=== PATIENT | female | born 2000 | race African-American/Black ===

== ENCOUNTER 2022-12-29 21:01 | Emergency (ER) | payer SELFPAY ==
[~2022-12-29] VITALS: Ht 162.6 cm; Wt 72.0 kg
[2022-12-29 21:58] VITALS: BP 141/92
[2022-12-29 23:59] LABS: CLARITY URINE CLOUDY (CLEAR); COLOR URINE YELLOW (YELLOW); KETONES URINE TRACE (NEGATIVE); LEUKOCYTE ESTERASE URINE 1+ (NEGATIVE); NITRITE URINE NEGATIVE (NEGATIVE); OCCULT BLOOD URINE NEGATIVE (NEGATIVE); PROTEIN URINE NEGATIVE (NEGATIVE); SPECIFIC GRAVITY URINE 1.023 (1.005-1.030)
[2022-12-30] MEDS ORDERED: DOXY100T2 PO (00:10)
[2022-12-30] MEDS ORDERED: VALA10002 PO (00:10)
[2022-12-30] MEDS ORDERED: LIDOCAINE HCL 1% 20ML VIAL (Pyxis) INJ INFIL ONE (00:15)
[2022-12-30] MEDS ORDERED: CEFTRIAXONE SODIUM 500 MG/VIAL IM ONE (00:15)
[2022-12-30] MEDS ORDERED: DOXYCYCLINE HYCLATE 100MG CAPSULE PO ONE (00:15)
[2022-12-30] MEDS ORDERED: CEPH500C2 PO (00:37)
[2023-01-02 04:07] LABS: NEISSERIA GONORRHOEAE NAA Negative (Negative)
== END 2022-12-30 01:22 | disposition home or self-care (01) ==
LOC: ER 21:01
DX: A64 Unspecified sexually transmitted disease (principal); N39.0 Urinary tract infection, site not specified
CPT/HCPCS: 81003; 81025; 87491; 87591; 99283; J0696

== ENCOUNTER 2023-10-24 16:52 | Emergency (ER) | payer SELFPAY ==
[~2023-10-24] VITALS: Ht 162.6 cm; Wt 74.0 kg
[~2023-10-24 16:52] MED LIST: CEPH500C2 PO; DOXY100T2 PO; VALA10002 PO
[2023-10-24 17:02] VITALS: BP 122/65; PULSE 96; RESP 18; TEMP 98.4; O2SAT 100
== END 2023-10-24 22:20 | disposition left against medical advice (07) ==
LOC: ER 16:52
DX: N93.9 Abnormal uterine and vaginal bleeding, unspecified (principal); Z53.21 Procedure and treatment not carried out due to patient leaving prior to being seen by health care provider
CPT/HCPCS: 99281

== ENCOUNTER 2024-03-03 22:05 | Emergency (ER) | payer MEDICAID ==
[~2024-03-03] VITALS: Ht 162.6 cm; Wt 70.0 kg
[2024-03-03 22:25] VITALS: TEMP 98.6; O2SAT 100
[2024-03-04 01:48] LABS: BASOPHILS % 0.9 % (0.0-2.0); EOSINOPHILS % 0.4 % (0.0-5.0); HEMATOCRIT. 37.5 % (36.0-48.0); HEMOGLOBIN. 12.4 g/dL (12.0-16.0); LYMPHOCYTES % 30.2 % (20.0-50.0); MEAN CORPUSCULAR HGB CONC 33.1 g/dL (31.0-37.0); MEAN CORPUSCULAR VOLUME 81.4 fL (81.0-99.0); MEAN PLATELET VOLUME 7.8 fl (7.4-10.4); MONOCYTES % 6.3 % (2.0-8.0); NEUTROPHILS % 62.2 % (40.0-76.0); PLATELET 290 x1000/uL (130-400); RED BLOOD CELL COUNT 4.61 mill/uL (4.2-5.4); RED CELL DISTRIBUTION WIDTH 13.2 % (11.6-14.6); WHITE BLOOD COUNT 7.8 x1000/uL (4.5-11.0)
[2024-03-04 02:04] LABS: CHLORIDE 105 mEq/L (98-107); SODIUM 137 mEq/L (136-145)
[2024-03-04 02:05] LABS: CARBON DIOXIDE 25 mEq/L (21-32)
[2024-03-04 02:10] LABS: CREATININE 0.9 mg/dL (0.6-1.0); GLUCOSE 87 mg/dL (70-105); UREA NITROGEN BLOOD 6 mg/dL (9-23)
[2024-03-04 02:12] LABS: ALANINE AMINOTRANSFERASE 8 IU/L (10-49); ALBUMIN 4.9 g/dL (3.2-4.8); ASPARTATE AMINOTRANSFERASE 16 IU/L (<34)
[2024-03-04 02:13] LABS: BILIRUBIN TOTAL 0.3 mg/dL (0.1-1.0); PROTEIN TOTAL 8.3 g/dL (6.0-8.3)
[2024-03-04] MEDS: ONDANSETRON 4MG ODT PO ONE (02:16)
[2024-03-04 02:18] LABS: CLARITY URINE CLOUDY (CLEAR); COLOR URINE DARK YELLOW (YELLOW); GLUCOSE URINE NEGATIVE (NEGATIVE); KETONES URINE TRACE (NEGATIVE); LEUKOCYTE ESTERASE URINE 2+ (NEGATIVE); NITRITE URINE NEGATIVE (NEGATIVE); OCCULT BLOOD URINE NEGATIVE (NEGATIVE); PH URINE 5.5 (4.5-8.0); PROTEIN URINE NEGATIVE (NEGATIVE); SPECIFIC GRAVITY URINE 1.025 (1.005-1.030)
[2024-03-04 02:36] LABS: RBC URINE 0-2 /hpf (0-2)
[2024-03-04 02:37] LABS: BACTERIA URINE 1+; CALCIUM OXALATE CRYSTALS URINE 3+ /lpf; MUCUS URINE 1+ /lpf (< = 2+); SQUAMOUS EPITHELIAL CELL URINE 2+ /lpf (RARE/1+)
[2024-03-04 04:45] LABS: BASOPHILS % 0.6 % (0.0-2.0); EOSINOPHILS % 0.6 % (0.0-5.0); HEMATOCRIT. 34.9 % (36.0-48.0); HEMOGLOBIN. 11.5 g/dL (12.0-16.0); LYMPHOCYTES % 33.2 % (20.0-50.0); MEAN CORPUSCULAR HEMOGLOBIN 26.6 pg (28.0-32.0); MEAN CORPUSCULAR VOLUME 80.8 fL (81.0-99.0); MEAN PLATELET VOLUME 7.7 fl (7.4-10.4); MONOCYTES % 5.9 % (2.0-8.0); NEUTROPHILS % 59.7 % (40.0-76.0); PLATELET 261 x1000/uL (130-400); RED BLOOD CELL COUNT 4.32 mill/uL (4.2-5.4); RED CELL DISTRIBUTION WIDTH 13.6 % (11.6-14.6); WHITE BLOOD COUNT 7.9 x1000/uL (4.5-11.0)
[2024-03-04] MEDS ORDERED: NITR-87 MT (04:45)
[2024-03-04] MEDS ORDERED: TOPUD MT (04:45)
[2024-03-04] MEDS ORDERED: ONDA4TAB50 MT (04:45)
[2024-03-04 04:53] LABS: CHLORIDE 106 mEq/L (98-107); POTASSIUM 3.8 mEq/L (3.5-5.1); SODIUM 138 mEq/L (136-145)
[2024-03-04 04:54] LABS: CALCIUM 9.4 mg/dL (8.7-10.4); CARBON DIOXIDE 25 mEq/L (21-32)
[2024-03-04 04:59] LABS: CREATININE 0.8 mg/dL (0.6-1.0); GLUCOSE 84 mg/dL (70-105)
[2024-03-04 05:11] LABS: B-HCG QUANTITATIVE 22917 mIU/mL (<3)
[2024-03-04 05:16] LABS: UREA NITROGEN BLOOD < 5 mg/dL (9-23)
[2024-03-04 05:23] VITALS: BP 106/61; PULSE 94; RESP 16
== END 2024-03-04 05:23 | disposition home or self-care (01) ==
LOC: ER 22:05
DX: O20.0 Threatened abortion (principal); O23.31 Infections of other parts of urinary tract in pregnancy, first trimester; N39.0 Urinary tract infection, site not specified; Z3A.01 Less than 8 weeks gestation of pregnancy
CPT/HCPCS: 99285; 81003; 36415 ×2; 76830; 76856; 80053; 81025; 84702; 85025; 86850; 86900; 86901; 80048; Q0162

== ENCOUNTER 2024-03-12 01:50 | Emergency (ER) | payer MEDICAID ==
[~2024-03-12] VITALS: Ht 162.6 cm; Wt 73.0 kg
[~2024-03-12 01:50] MED LIST changes: +NITR-87 MT; +ONDA4TAB50 MT; +TOPUD MT
[2024-03-12 02:11] VITALS: TEMP 99.3; O2SAT 99
[2024-03-12] MEDS ORDERED: METOCLOPRAMIDE 10MG/10 ML UDC PO ONE (02:45)
[2024-03-12 03:14] LABS: BASOPHILS % 0.7 % (0.0-2.0); EOSINOPHILS % 0.2 % (0.0-5.0); HEMOGLOBIN. 11.4 g/dL (12.0-16.0); LYMPHOCYTES % 15.4 % (20.0-50.0); MEAN CORPUSCULAR HEMOGLOBIN 25.9 pg (28.0-32.0); MEAN CORPUSCULAR HGB CONC 31.8 g/dL (31.0-37.0); MEAN CORPUSCULAR VOLUME 81.2 fL (81.0-99.0); MEAN PLATELET VOLUME 8.2 fl (7.4-10.4); MONOCYTES % 7.8 % (2.0-8.0); NEUTROPHILS % 75.9 % (40.0-76.0); PLATELET 236 x1000/uL (130-400); RED BLOOD CELL COUNT 4.43 mill/uL (4.2-5.4); RED CELL DISTRIBUTION WIDTH 13.4 % (11.6-14.6); WHITE BLOOD COUNT 7.9 x1000/uL (4.5-11.0)
[2024-03-12 03:21] LABS: CHLORIDE 101 mEq/L (98-107); POTASSIUM 3.5 mEq/L (3.5-5.1); SODIUM 134 mEq/L (136-145)
[2024-03-12 03:22] LABS: CARBON DIOXIDE 24 mEq/L (21-32)
[2024-03-12 03:23] LABS: CALCIUM 9.5 mg/dL (8.7-10.4)
[2024-03-12 03:27] LABS: CREATININE 0.8 mg/dL (0.6-1.0)
[2024-03-12 03:28] LABS: GLUCOSE 94 mg/dL (70-105)
[2024-03-12 03:29] LABS: ALANINE AMINOTRANSFERASE 8 IU/L (10-49); ASPARTATE AMINOTRANSFERASE 13 IU/L (<34)
[2024-03-12 03:30] LABS: BILIRUBIN TOTAL 0.2 mg/dL (0.1-1.0); PROTEIN TOTAL 7.2 g/dL (6.0-8.3)
[2024-03-12] MEDS: METOCLOPRAMIDE 10MG/10 ML UDC PO NR (03:30)
[2024-03-12 03:40] LABS: B-HCG QUANTITATIVE 93992 mIU/mL (<3)
[2024-03-12 04:00] LABS: UREA NITROGEN BLOOD < 5 mg/dL (9-23)
[2024-03-12] MEDS: SODIUM CHLORIDE 0.9% 1,000 ML IV ONE (05:30)
[2024-03-12] MEDS ORDERED: ONDA4TAB50 MT (05:37)
[2024-03-12 08:12] VITALS: BP 99/59; PULSE 110; RESP 15
== END 2024-03-12 08:34 | disposition home or self-care (01) ==
LOC: ER 02:16
DX: O21.0 Mild hyperemesis gravidarum (principal); Z3A.01 Less than 8 weeks gestation of pregnancy
CPT/HCPCS: 99284; 96360; 76801; 80053; 84702; 85025; 36415; 76817; J8597; J7030

== ENCOUNTER 2024-06-06 01:47 | Emergency (ER) | payer BC, MEDICAID ==
[~2024-06-06] VITALS: Ht 162.6 cm; Wt 70.0 kg
[2024-06-06 01:59] VITALS: BP 125/85; PULSE 67; RESP 16; TEMP 98.1; O2SAT 100
[2024-06-06 02:24] LABS: BASOPHILS % 0.8 % (0.0-2.0); EOSINOPHILS % 1.3 % (0.0-5.0); HEMATOCRIT. 35.4 % (36.0-48.0); HEMOGLOBIN. 11.6 g/dL (12.0-16.0); LYMPHOCYTES % 50.4 % (20.0-50.0); MEAN CORPUSCULAR HEMOGLOBIN 26.8 pg (28.0-32.0); MEAN CORPUSCULAR HGB CONC 32.7 g/dL (31.0-37.0); MEAN CORPUSCULAR VOLUME 81.9 fL (81.0-99.0); MEAN PLATELET VOLUME 8.1 fl (7.4-10.4); MONOCYTES % 6.2 % (2.0-8.0); NEUTROPHILS % 41.3 % (40.0-76.0); PLATELET 248 x1000/uL (130-400); RED BLOOD CELL COUNT 4.32 mill/uL (4.2-5.4); RED CELL DISTRIBUTION WIDTH 13.9 % (11.6-14.6); WHITE BLOOD COUNT 6.9 x1000/uL (4.5-11.0)
[2024-06-06 02:38] LABS: CHLORIDE 105 mEq/L (98-107); POTASSIUM 4.1 mEq/L (3.5-5.1); SODIUM 141 mEq/L (136-145)
[2024-06-06 02:39] LABS: CARBON DIOXIDE 28 mEq/L (21-32)
[2024-06-06 02:40] LABS: CALCIUM 9.8 mg/dL (8.7-10.4)
[2024-06-06 02:44] LABS: GLUCOSE 90 mg/dL (70-105); UREA NITROGEN BLOOD 8 mg/dL (9-23)
[2024-06-06 02:45] LABS: B-HCG QUANTITATIVE 14 mIU/mL (<3)
== END 2024-06-06 04:52 | disposition left against medical advice (07) ==
LOC: ER 01:47
DX: Z36.89 Encounter for other specified antenatal screening (principal); Z53.21 Procedure and treatment not carried out due to patient leaving prior to being seen by health care provider
CPT/HCPCS: 36415; 76801; 80048; 81025; 84702; 85025; 86850; 86900

== ENCOUNTER 2024-07-29 16:08 | Emergency (ER) | payer BC ==
[~2024-07-29] VITALS: Ht 157.5 cm; Wt 69.0 kg
[2024-07-29 16:47] VITALS: TEMP 97.9; O2SAT 100
[2024-07-29] MEDS: ACETAMINOPHEN 325MG TABLET PO PRN (17:58)
[2024-07-29] MEDS: ONDANSETRON 4MG ODT PO ONE (17:58)
[2024-07-29 18:02] LABS: CLARITY URINE TURBID (CLEAR); COLOR URINE YELLOW (YELLOW); GLUCOSE URINE NEGATIVE (NEGATIVE); KETONES URINE NEGATIVE (NEGATIVE); LEUKOCYTE ESTERASE URINE NEGATIVE (NEGATIVE); NITRITE URINE NEGATIVE (NEGATIVE); OCCULT BLOOD URINE NEGATIVE (NEGATIVE); PROTEIN URINE NEGATIVE (NEGATIVE); SPECIFIC GRAVITY URINE 1.021 (1.005-1.030)
[2024-07-29 18:08] LABS: BASOPHILS % 0.7 % (0.0-2.0); EOSINOPHILS % 0.3 % (0.0-5.0); HEMATOCRIT. 38.4 % (36.0-48.0); HEMOGLOBIN. 12.5 g/dL (12.0-16.0); LYMPHOCYTES % 36.9 % (20.0-50.0); MEAN CORPUSCULAR HEMOGLOBIN 26.8 pg (28.0-32.0); MEAN CORPUSCULAR HGB CONC 32.7 g/dL (31.0-37.0); MEAN CORPUSCULAR VOLUME 82.2 fL (81.0-99.0); MONOCYTES % 6.1 % (2.0-8.0); PLATELET 254 x1000/uL (130-400); RED BLOOD CELL COUNT 4.67 mill/uL (4.2-5.4); RED CELL DISTRIBUTION WIDTH 13.7 % (11.6-14.6); WHITE BLOOD COUNT 6.7 x1000/uL (4.5-11.0)
[2024-07-29 18:13] LABS: CHLORIDE 105 mEq/L (98-107); SODIUM 136 mEq/L (136-145)
[2024-07-29 18:14] LABS: CALCIUM 9.7 mg/dL (8.7-10.4); CARBON DIOXIDE 25 mEq/L (21-32)
[2024-07-29 18:19] LABS: CREATININE 0.8 mg/dL (0.6-1.0); GLUCOSE 79 mg/dL (70-105); UREA NITROGEN BLOOD 5 mg/dL (9-23)
[2024-07-29 18:21] LABS: ALANINE AMINOTRANSFERASE 26 IU/L (10-49); ALBUMIN 4.4 g/dL (3.2-4.8); ASPARTATE AMINOTRANSFERASE 22 IU/L (<34); BILIRUBIN TOTAL 0.3 mg/dL (0.1-1.0); PROTEIN TOTAL 8.2 g/dL (6.0-8.3)
[2024-07-29 18:32] LABS: B-HCG QUANTITATIVE 181265 mIU/mL (<3); BILIRUBIN DIRECT < 0.1 mg/dL (<=3.0)
[2024-07-29 18:37] LABS: AMORPHOUS SEDIMENT URINE 2+ /lpf; BACTERIA URINE TRACE; RBC URINE NONE SEEN /hpf (0-2); SQUAMOUS EPITHELIAL CELL URINE RARE /lpf (RARE/1+); WBC URINE 0-2 /hpf (0-2)
[2024-07-29] MEDS ORDERED: CEPH500C2 MT (19:56)
[2024-07-29 20:17] VITALS: BP 129/84; PULSE 62; RESP 16; O2SAT 100
== END 2024-07-29 20:18 | disposition home or self-care (01) ==
LOC: ER 16:08
DX: O20.0 Threatened abortion (principal); Z3A.08 8 weeks gestation of pregnancy
CPT/HCPCS: 99284; 76801; 80076; 80048; 81003; 84702; 85025; 86850; 86900; 86901; 36415; 76817; Q0162

== ENCOUNTER 2025-02-23 22:36 | Emergency (ER) | payer BC, MEDICAID ==
[~2025-02-23] VITALS: Ht 162.6 cm; Wt 78.0 kg
[~2025-02-23 22:36] MED LIST changes: +CEPH500C2 MT
[2025-02-23 22:40] VITALS: O2SAT 99
[2025-02-24 00:54] VITALS: BP 114/57; PULSE 82; RESP 19; TEMP 37.1; O2SAT 100
== END 2025-02-24 01:21 | disposition home or self-care (01) ==
LOC: ER 22:36
DX: O26.893 Other specified pregnancy related conditions, third trimester (principal); R10.9 Unspecified abdominal pain; Z79.624 Long term (current) use of inhibitors of nucleotide synthesis; Z79.899 Other long term (current) drug therapy; Z3A.37 37 weeks gestation of pregnancy
CPT/HCPCS: 76805; 99284